=== PATIENT | male | born 2000 | race Caucasian/White ===

== ENCOUNTER 2020-11-16 21:26 | Emergency (ER) | payer BC ==
[~2020-11-16] VITALS: Ht 172.7 cm; Wt 77.3 kg
[2020-11-16 21:29] VITALS: TEMP 98.7
[2020-11-16 21:49] LABS: BASO # 0.1 (0.0-0.2); EOS # 0.1 (0.0-0.7); EOS % 0.6 % (0-4.0); GRAN # 6.7 (1.4-6.5); GRAN % 69.4 % (42.2-75.2); HEMATOCRIT 45.7 % (42.0-52.0); HEMOGLOBIN 15.6 g/dl (13.5-18.0); LYMPH # 2.2 (1.2-3.4); LYMPH % 22.4 % (20.0-51.0); MEAN CELL VOLUME 88 fl (80.0-100.0); MEAN CORPUSCULAR HEMOGLOBIN 30 pg (27.0-31.0); MEAN CORPUSCULAR HGB CONC 34 g/dl (33.0-37.0); MEAN PLATELET VOLUME 9.3 fl (7.4-10.4); MONO # 0.6 (0.1-0.6); MONO % 6.3 % (1.7-9.3); PLATELET COUNT 271 K/mm3 (130-400); RED BLOOD COUNT 5.18 M/mm3 (4.20-5.60); REDCELL DISTRIBUTION WIDTH-CV 12.2 % (11.5-14.5)
[2020-11-16 21:55] LABS: CALCIUM 9.4 mg/dL (8.4-10.2); CREATININE, serum 1.08 (0.66-1.25); POTASSIUM 3.7 mmol/L (3.4-5.0)
[2020-11-16 22:26] LABS: THYROID STIMULATING HORMONE 1.04 uIU/mL (0.465-4.680)
[2020-11-16 23:07] VITALS: BP 146/76; PULSE 103
== END 2020-11-16 23:20 | disposition home or self-care (01) ==
LOC: COL.ER 21:26
PROVIDERS: Emergency Medicine
DX: R00.0 Tachycardia, unspecified (principal); F41.9 Anxiety disorder, unspecified
CPT/HCPCS: J2060; J7030